=== PATIENT | female | born 1980 | race Caucasian/White ===

== ENCOUNTER 2016-11-10 13:25 | Emergency (ER) | payer OTHER ==
[~2016-11-10] VITALS: Ht 154.9 cm; Wt 49.0 kg
[~2016-11-10 13:25] MED LIST: ROBITUSSIN; TYLENOL; ZITHROMAX
[2016-11-10 13:27] VITALS: Ht 154.9 cm; Wt 49.0 kg
[2016-11-10] MEDS ORDERED: AZIT250T94 PO (14:40)
[2016-11-10] MEDS ORDERED: FLUT9.9S NASAL (14:41)
[2016-11-10] MEDS ORDERED: CETI10CA PO (14:41)
[2016-11-10] MEDS ORDERED: NAPR-260 PO (14:42)
[2016-11-10] MEDS ORDERED: BENZ100C70 PO (14:45)
--- NOTE | 2016-11-10 14:54 | ERD ---
ER Documentation Chief Complaint Date/Time DATE: 11/10/16 TIME: 14:47 Chief Complaint COUGH X 3 DAYS HPI Is a 36-year-old female who presents to the emergency department today complaining of cough for the past 5-6 days. States her cough is worse at night. States that she has some mucus production. States her ears and throat are itchy. States that he also has a headache that started today.. States she has taken Tylenol. States she smokes cigarettes and marijuana and drinks alcohol. Denies any fevers or chills ROS All systems reviewed and are negative except as per history of present illness. Medications Home Meds Active Scripts Benzonatate* (Tessalon Perle*) 100 Mg Capsule, 100 MG PO Q8H Y for COUGH, #30 CAP Prov:VISHAL FERNANDES PA-C 11/10/16 Naproxen* (Naprosyn*) 500 Mg Tablet, 500 MG PO BID Y for PAIN AND/OR INFLAMMATION, #30 TAB Prov:VISHAL FERNANDES PA-C 11/10/16 Cetirizine Hcl* (Zyrtec*) 10 Mg Capsule, 10 MG PO DAILY, #14 TAB.CHEW Prov:VISHAL FERNANDES PA-C 11/10/16 Fluticasone Propionate (Flonase Allergy Relief) 9.9 Ml [place].susp, 2 SPRAY NASAL DAILY, #1 BOTTLE TO EACH NOSTRIL Prov:VISHAL FERNANDES PA-C 11/10/16 Azithromycin* (Zithromax*) 250 Mg Tablet, 250 MG PO .ZPACK DIRECTED, #6 TAB TAKE 500 MG (2 TABS) THE FIRST DAY THEN 250 MG (1 TAB) DAYS 2-5 Prov:VISHAL FERNANDES PA-C 11/10/16 Reported Medications [Robitussin] No Conflict Check 05/15/10 [Tylenol] No Conflict Check 05/15/10 [Zithromax] No Conflict Check 05/15/10 Allergies Allergies: Coded Allergies: No Known Drug Allergies (Verified Allergy, Mild, 05/16/10) PMhx/Soc History of Surgery: No Anesthesia Reaction: No Hx Neurological Disorder: No Hx Respiratory Disorders: No Hx Cardiac Disorders: No Hx Psychiatric Problems: No Hx Miscellaneous Medical Probl: Yes (BRONCHITIS) Hx Alcohol Use: Yes ([place] lst tu) Hx Substance Use: Yes (marijuana use last tu) Hx Tobacco Use: No (1/2 pack a day) Physical Exam Vitals Vital Signs Date Time Temp Pulse Resp B/P Pulse Ox O2 Delivery O2 Flow Rate FiO2 11/10/16 13:27 98.1 102 18 122/69 98 Physical Exam Const: NAD Head: Atraumatic Eyes: Normal Conjunctiva ENT: Ears TMs normal. Nose no drainage. Throat erythema no exudate. Tenderness palpation frontal and maxillary sinuses Neck: Full range of motion..~ No meningismus. Resp: Clear to auscultation bilaterally no absent breath sounds. No wheezing peer Cardio: Regular rate and rhythm, no murmurs Skin: No petechiae or rashes Ext: No cyanosis, or edema Neur: Awake and alert Psych: Normal Mood and Affect Procedures/MDM This 50-year-old female who presented to the emergency department today complaining of cough for the past 5-6 days and headache that started today. Patient does sound like she has some nasal congestion and with the exception of tenderness on her frontal maxillary sinuses the remainder of her physical exam is essentially benign. She is afebrile and otherwise well-appearing. Her oxygen saturations 98%. She was slightly tachycardic however I do not feel that she requires a chest x-ray. I do have low suspicion for pneumonia, PE, abscess, pleural effusion or pneumothorax. Patients symptoms at this time most consistent with URI. I have low suspicion for strep pharyngitis, peritonsillar abscess, retropharyngeal abscess, otitis media, PNA,, abscess, meningitis, sepsis, or other acute infectious bacterial process. However patient is a cigarette smoker and has had pneumonia in the past. I do feel that with patient's history is beneficial to give her azithromycin at this time that would cover her for bronchitis, pneumonia, sinusitis. Patient was counseled for greater than 3 minutes to stop smoking cigarettes and abusing drugs. She will be given a prescription for azithromycin, Flonase, Zyrtec and Tessalon Perles as well as Naprosyn for her headache At this time the patient is stable for discharge and outpatient management. Patient should follow up with their PCP in the next 1-2 days. They may return to the emergency department sooner for any persistent or worsening of symptoms. Patient understood and agreed with the plan. Departure Diagnosis: Primary Impression: URI (upper respiratory infection) URI type: unspecified URI Qualified Code: J06.9 - Upper respiratory tract infection, unspecified type Condition: Fair Patient Instructions: Preventing Common Respiratory Infections Referrals: your PCP Additional Instructions: Call your primary care doctor TOMORROW for an appointment during the next 1-2 days.See the doctor sooner or return here if your condition worsens before your appointment time. Take antibiotics as prescribed Take Naprosyn for headache Take Flonase and Zyrtec as prescribed VISHAL FERNANDES PA-C Nov 10, 2016 14:54
== END 2016-11-10 14:57 | disposition home or self-care (01) ==
LOC: FTE 13:25
DX: J06.9 Acute upper respiratory infection, unspecified (principal); F17.210 Nicotine dependence, cigarettes, uncomplicated
CPT/HCPCS: 99284

== ENCOUNTER 2017-08-12 22:19 | Emergency (ER) | END 2017-08-13 03:30 | disposition home or self-care (01) ==